=== PATIENT | male | born 1955 | race Caucasian/White ===

== ENCOUNTER → 2023-10-15 10:30 | Outpatient (REF) | payer MEDICARE, OTHER, SELFPAY | LOC: RAD 10:30 | PROVIDERS: ATTENDING PHYSICIAN Physician Assistant | DX: R31.9 Hematuria, unspecified (principal); Z01.89 Encounter for other specified special examinations | CPT/HCPCS: 74176 ==

== ENCOUNTER 2024-09-27 06:18 | Day surgery (SDC) | payer MEDICARE, OTHER, SELFPAY | END 2024-09-27 09:35 | disposition home or self-care (01) | LOC: GI 06:18 | PROVIDERS: ATTENDING PHYSICIAN Internal Medicine Gastroenterology | DX: Z12.11 Encounter for screening for malignant neoplasm of colon (principal); D12.0 Benign neoplasm of cecum; D12.2 Benign neoplasm of ascending colon; D12.3 Benign neoplasm of transverse colon; K55.20 Angiodysplasia of colon without hemorrhage; K62.7 Radiation proctitis; Y84.2 Radiological procedure and radiotherapy as the cause of abnormal reaction of the patient, or of later complication, without mention of misadventure at the time of the procedure; Z86.0100 Personal history of colon polyps, unspecified | CPT/HCPCS: 45385; 45380; 88305 ==

== ENCOUNTER 2025-04-01 21:19 | Emergency (ER) | payer MEDICARE, OTHER, SELFPAY ==
[2025-04-01 21:32] VITALS: BP 167/100
--- NOTE | 2025-04-02 01:35 | ED.MUSCINJ ---
HPI-Injury
General
Chief Complaint: Musculo-Skeletal Complaint
Source: patient
Exam Limitations: none
Time Seen by Provider: 04/02/25 01:22
Nursing documentation reviewed up to this point in time: agreed with
History of Present Illness-Injury
Is this injury a work related problem?: No
Initial Injury comments:
Note:
CHIEF COMPLAINT(S)
Fall with right wrist.
HISTORY OF PRESENT ILLNESS
The patient is a 69-year-old male who presented with pain in the right wrist following a fall. The injury occurred when the patient attempted to climb over a dog fence while carrying weight on the left side, which resulted in losing balance and
falling backward. The patient described the pain in the wrist as discomfort, but not associated with any visible deformities or swelling. He stated there was no head trauma during the fall. The discomfort reportedly increases with movement. The
patient was concerned about the possibility of a fracture, but the clinical examination showed no signs of broken bones. A splint is suggested for comfort, which the patient can remove as needed. Recommendations for home care include the application
of ice and taking acetaminophen for pain management. The patient inquired about ways to expedite recovery and was informed that healing will take some time.
PHYSICAL EXAM
General: Alert, no acute distress.
Skin: Warm, dry.
Head: Normocephalic, atraumatic.
Neck: Supple, trachea midline.
Eyes, Ears, Nose, Mouth, and Throat: Oral mucosa moist.
Cardiovascular: Normal peripheral perfusion, No edema.
Respiratory: Respirations are non-labored.
Gastrointestinal : Abdomen nondistended.
Back: Normal range of motion, normal alignment.
Musculoskeletal: Normal range of motion, normal strength. right wrist with tenderness, no deformity or swelling noted. no snuffbox tenderness
Neurological: Alert and oriented to person, place, time, and situation, No focal neurological deficit observed.
Psychiatric: Cooperative, appropriate mood & affect.
PLAN
1. Apply a splint to the right wrist for support and comfort.
2. Advise the patient to apply ice to the affected area.
3. Recommend [id number] acetaminophen for pain relief.
4. Educate the patient that healing will take time and to avoid strenuous activities that may aggravate the injury.
DIFFERENTIAL DIAGNOSIS
The Differential Diagnosis includes, in no particular order and is not limited to:
1. Shoulder contusion
2. Rotator cuff strain
3. Acromioclavicular joint sprain
4. Shoulder dislocation
5. Clavicle fracture
6. Proximal humerus fracture
7. Soft tissue injury
8. Bursitis
9. Tendonitis
10. Glenoid labral tear
Disposition:
SUMMARY OF ENCOUNTER
The patient, a 69-year-old male, presented with pain in the right wrist following a fall. An x-ray was performed, revealing no fractures or dislocations. No other injuries were identified. A volar splint was applied for support and comfort. The
patient was advised to follow up with orthopedics as needed and was provided with return precautions.
PLAN
1. Apply a volar splint to the right wrist for support.
2. Instruct the patient to follow up with orthopedics as necessary.
3. Provide the patient with return precautions and instructions to seek immediate medical attention if new symptoms arise or if there is a change in the condition.
PATIENT EDUCATION AND COUNSELING
The patient was educated on the use of a volar splint for support and comfort, advised to rest the wrist, and avoid activities that may exacerbate the pain. Return precautions were provided.
FOLLOW-UP INSTRUCTIONS
The patient is advised to follow up with orthopedics as needed and to return to the emergency department if symptoms worsen or new symptoms develop.
MEDICATION RECONCILIATION
No medications were prescribed or administered during the visit.
MEDICAL DECISION MAKING
- Number and Complexity of Problems Addressed: Chronic conditions affecting care: None mentioned in the transcript. Differential Diagnosis: Wrist contusion, soft tissue injury, tendonitis, wrist sprain.
- Data:
Category 1: Tests and documents - My independent interpretation of the x-ray of the right wrist shows no fractures or dislocations.
-Risk: Prescription medication was considered, but none was prescribed as there were no findings or symptoms warranting drug intervention at this time.
DIAGNOSIS
- Wrist contusion, right (ICD-10: S60.211A)
- Soft tissue injury, right wrist (ICD-10: S69.91XA)
Phy Exam
Physical Exam
Physical Exam:
.
Injury Course
Orders/Labs/Results
Orders:
Orders
04/01/25 21:35
CR Wrist - Right Min 3 Views Stat
Comment:
Reason For Exam: wrist pain
04/02/25 01:35
Volar Right-Treatment ONCE
Procedures
Splint Check
Splint checked by provider?: Yes
Circulation/Movement/Sensation post splint application: brisk cap refill, full sensation, pulses intact and full ROM
*Pulse Oximetry
SaO2: 97
Oxygen Mode of Delivery: Room air
Patient hypoxic: no
*Critical Care Note
Total Time (30-74mins, 75-104mins- exclusive of procedures): Not Applicable
ED Attending Note
-
Portions of this chart may have been created with voice recognition software.� Occasional wrong word or��sound alike� substitutions may have occurred due to the inherent limitations of voice recognition software.
Discharge Plan
Departure
Patient Disposition: Home (Routine Discharge)
Date of Disposition: 04/02/25
Time of Disposition: 01:36
Patient with high blood pressure during this ER visit?: Yes
Condition: Good
Discharge Problem:
Right wrist sprain
Instructions: Sprain (DC)
Prescriptions:
No Action
citalopram 20 MG tablet
20 mg PO DAILY
sildenafil [Viagra] 100 MG tablet
100 mg PO PRN PRN (Reason: sex)
cephalexin [Keflex] 500 MG capsule
500 mg PO TID Qty: 10 0RF
Rx Instructions:
rx given in office
acetaminophen-codeine 1 TABLET tablet
1 tab PO Q4HPRN PRN (Reason: pain) Qty: 10 0RF
Rx Instructions:
pt has rx
Referrals:
Jossue Villeda MD [Active, Orthopedics] - As needed
Interventions
Interventions:
*Neglect/Abuse Screening Last Done: 04/01/25 21:33
[facility] Risk Assessment Tool Last Done: 04/02/25 01:20
*Risk Screen - Suicide (C-SSRS) Last Done: 04/01/25 21:33
Discharge Date and Time
Print Language: SPANISH
== END 2025-04-02 01:46 | disposition home or self-care (01) ==
LOC: EMR 21:19
PROVIDERS: EMERGENCY PHYSICIAN Emergency Medicine; FAMILY PHYSICIAN Family Medicine
DX: S63.501A Unspecified sprain of right wrist, initial encounter (principal); W01.0XXA Fall on same level from slipping, tripping and stumbling without subsequent striking against object, initial encounter; R03.0 Elevated blood-pressure reading, without diagnosis of hypertension
CPT/HCPCS: 99283; 29125; 73110